=== PATIENT | female | born 1970 | race Caucasian/White ===

== ENCOUNTER 2018-01-21 17:37 | Emergency (ER) | payer OTHER ==
[2018-01-21] MEDS ORDERED: ENOXAPARIN SODIUM SQ STA (18:42)
--- NOTE | 2018-01-21 18:48 | ERPHSYRPT ---
- History of Present Illness Time Seen by Provider: 01/21/18 18:43 Source: patient Exam Limitations: no limitations Patient Subjective Stated Complaint: pt here for pain and swelling to lower legs , pt was sent here from drs office to rule out a dvt, she has factor 5 Triage Nursing Assessment: pt walked in, resp easy, skin w/d/p, has swelling to lower legs that pt states is normal. red area to right olwer leg size of quarter Physician History: The patient is a 47-year-old morbidly obese female who comes in from her pain management doctor who wants her to be evaluated for possible DVT and her right lower leg. The patient has known factor V Leiden deficiency and has known DVT that occurred 15 years ago. She has been on warfarin for many years and was transferred to [facility] and then transferred to [facility]. She went to see the pain management doctor for pain in her right leg that was due to the intermittent swelling of her right leg that she has had for 15 years. The pain specialist doctor would not fill her request for pain medicines until she has an ultrasound to look for DVT. The patient moved here from [place] in May 2017. She does not think that she has a blood clot at this time. She has had much worse leg swelling from time to time. She follows my recommendation to have an ultrasound done tomorrow on her right lower leg and then follow-up with her primary care doctor who can contact her pain management doctor. Her past medical history is significant for factor V Leiden, kidney stones, gout, arthritis, and depression. Timing/Duration: other (15 years) Severity: moderate Modifying Factors: Improves With: medication Associated Symptoms: denies symptoms Allergies/Adverse Reactions: aspirin Allergy (Verified 01/21/18 17:57) Penicillins Allergy (Verified 01/21/18 17:57) Home Medications: Allopurinol 300 mg [Zyloprim 300 mg] 300 mg PO DAILY 01/19/18 [History] Apixaban [Eliquis 5 mg Tablet] 5 mg PO BID 01/19/18 [History] Escitalopram Oxalate [Lexapro] 20 mg PO DAILY 01/19/18 [History] Furosemide 40 mg [Lasix 40 MG] 40 mg PO DAILY 01/19/18 [History] Meloxicam 15 mg [Meloxicam 15 MG] 15 mg PO DAILY 01/19/18 [History] Montelukast Sodium 10 mg [Singulair 10 MG] 10 mg PO DAILY 01/19/18 [History] Potassium Chloride [Klor-Con 10] 10 meq PO BID 01/19/18 [History] Tamsulosin HCl 0.4 mg [Flomax 0.4 MG] 0.4 mg PO DAILY 01/19/18 [History] Hx Influenza Vaccination/Date Given: No Hx Pneumococcal Vaccination/Date Given: No Immunizations Up to Date: Yes - Review of Systems Constitutional: No Fever, No Chills Eyes: No Symptoms Ears, Nose, & Throat: No Symptoms Respiratory: No Cough, No Dyspnea Cardiac: Edema (right lower leg), No Chest Pain, No Syncope Abdominal/Gastrointestinal: No Abdominal Pain, No Nausea, No Vomiting, No Diarrhea Genitourinary Symptoms: No Dysuria Musculoskeletal: No Back Pain, No Neck Pain Skin: No Rash Neurological: No Dizziness, No Focal Weakness, No Sensory Changes Psychological: No Symptoms Endocrine: No Symptoms Hematologic/Lymphatic: No Symptoms Immunological/Allergic: No Symptoms All Other Systems: Reviewed and Negative - Past Medical History Pertinent Past Medical History: Yes Respiratory History: Asthma, Sleep Apnea History: Other Psycho-Social History: Depression Other Medical History: gout ,kidney stones - Past Surgical History Past Surgical History: Yes Female Surgical History: Section, Tubal Ligation Other Surgical History: kidney stone removal - Social History Smoking Status: Never smoker Exposure to second hand smoke: No Drug Use: none Patient Lives Alone: No - Female History Hx Last Menstrual Period: 2009 Hx Now: No - Nursing Vital Signs Nursing Vital Signs: Initial Vital Signs Temperature 97.8 F 01/21/18 17:50 Pulse Rate 75 01/21/18 17:50 Respiratory Rate 16 01/21/18 17:50 Blood Pressure 137/70 01/21/18 17:50 O2 Sat by Pulse Oximetry 99 01/21/18 17:50 Pain Scale Pain Intensity 8 - Physical Exam General Appearance: no apparent distress, alert Eye Exam: PERRL/EOMI, eyes nml inspection Ears, Nose, Throat Exam: normal ENT inspection, TMs normal, pharynx normal, moist mucous membranes Neck Exam: normal inspection, non-tender, supple, full range of motion Respiratory Exam: normal breath sounds, lungs clear, No respiratory distress Cardiovascular Exam: regular rate/rhythm, normal heart sounds, normal peripheral pulses, edema (right lower leg) Gastrointestinal/Abdomen Exam: soft, normal bowel sounds, No tenderness, No mass Pelvic Exam: not done Rectal Exam: not done Back Exam: normal inspection, normal range of motion, No CVA tenderness, No vertebral tenderness Extremity Exam: normal inspection, normal range of motion, pelvis stable Neurologic Exam: alert, oriented x 3, cooperative, normal mood/affect, nml cerebellar function, nml station & gait, sensation nml, No motor deficits Skin Exam: normal color, warm, dry, No rash Lymphatic Exam: No adenopathy SpO2 Interpretation: normal SpO2: 99 Oxygen Delivery: Room Air - Progress Progress: unchanged Progress Note: 01/21/18 18:50 I discussed the plan for the patient as follows: The patient will be given Lovenox 120 units subcutaneous today in the ER. She will follow-up in radiology to have an ultrasound venous Doppler on her right lower leg at 4 PM tomorrow afternoon. She will follow-up promptly with her primary medical doctor. Discussed with : Josi Counseled pt/family regarding: diagnosis, need for follow-up - Departure Time of Disposition: 18:54 Departure Disposition: Home Clinical Impression: Right leg swelling Condition: Stable Critical Care Time: No Referrals: RAFY BELL [Primary Care Provider] - Additional Instructions: You have intermittent swelling of your right lower leg. You have known factor V Leiden diagnosis. Today you were given Lovenox 120 units subcutaneous in the ER. You are scheduled to have a right lower leg ultrasound to look for a DVT at [address] Prater has been contacted by me and is aware of what you are having done. You need to contact him shortly after having the ultrasound.
[2018-01-21] MEDS ORDERED: ENOXAPARIN SODIUM SQ ONE (18:56)
[2018-01-21 19:02] VITALS: BP 140/87; PULSE 72; O2SAT 97
== END 2018-01-21 19:13 | disposition home or self-care (01) ==
LOC: ED 17:37
DX: M79.89 Other specified soft tissue disorders (principal); M79.661 Pain in right lower leg; D68.51 Activated protein C resistance; E66.01 Morbid (severe) obesity due to excess calories; Z79.01 Long term (current) use of anticoagulants; M10.9 Gout, unspecified; M19.90 Unspecified osteoarthritis, unspecified site; Z79.899 Other long term (current) drug therapy; G47.30 Sleep apnea, unspecified; J45.909 Unspecified asthma, uncomplicated; F32.9 Major depressive disorder, single episode, unspecified
CPT/HCPCS: 96372; 99282; J1650

== ENCOUNTER 2018-02-07 12:50 | Emergency (ER) | payer OTHER ==
[2018-02-07 13:03] VITALS: BP 152/82
[2018-02-07] MEDS ORDERED: PROVENTIL 2.5 MG/3 ML NEB IH ONE ×2 (13:10→13:23)
[2018-02-07] MEDS ORDERED: TYLENOL 325 MG PO ONE (13:11)
[2018-02-07] MEDS ORDERED: TYLENOL 325 MG ONE (13:12)
--- NOTE | 2018-02-07 13:18 | ERPHSYRPT ---
- History of Present Illness Time Seen by Provider: 02/07/18 12:53 Source: patient, family Patient Subjective Stated Complaint: pt reports productive cough for 3 days- yellow green and white sputum-thick in nature-reports diarrhea since yesterday- tammie every hour-denies abd pain-denies vomiting Triage Nursing Assessment: pt pale warm and [id number] nonlabored-lungs diminished but clear-no retractions noted-abd soft and nontender to palp Physician History: CC: cough Hx: 47 y/o patient of Dr Prater with hx of blood clots. She has couple day hx of fever, myalgias, headache, cough, and watery diarrhea. She feels poorly. No vomiting. She has hx of asthma but out of inhaler as no symptoms for 3 years. Not short of breath. She takes blood thinners. No hx of DM. She feels off balance. Timing/Duration: day(s) (couple) Severity: moderate Allergies/Adverse Reactions: aspirin Allergy (Verified 02/07/18 13:02) Penicillins Allergy (Verified 02/07/18 13:02) Home Medications: Allopurinol 300 mg [Zyloprim 300 mg] 300 mg PO DAILY 01/19/18 [History] Apixaban [Eliquis 5 mg Tablet] 5 mg PO BID 01/19/18 [History] Escitalopram Oxalate [Lexapro] 20 mg PO DAILY 01/19/18 [History] Furosemide 40 mg [Lasix 40 MG] 40 mg PO DAILY 01/19/18 [History] Montelukast Sodium 10 mg [Singulair 10 MG] 10 mg PO DAILY 01/19/18 [History] Potassium Chloride [Klor-Con 10] 10 meq PO BID 01/19/18 [History] Tamsulosin HCl 0.4 mg [Flomax 0.4 MG] 0.4 mg PO DAILY 01/19/18 [History] Gabapentin [Neurontin] 100 mg PO HS 02/07/18 [History] Hx Tetanus, Diphtheria Vaccination/Date Given: No Hx Influenza Vaccination/Date Given: No Hx Pneumococcal Vaccination/Date Given: No Immunizations Up to Date: Yes - Review of Systems Constitutional: Fever, Chills, Fatigue, Malaise, Weakness Eyes: No Symptoms Ears, Nose, & Throat: Throat Pain Respiratory: Cough Cardiac: No Chest Pain, No Edema Abdominal/Gastrointestinal: Diarrhea (copious), No Abdominal Pain, No Vomiting Musculoskeletal: Myalgias, No Neck Pain Skin: No Rash Neurological: Headache, No Focal Weakness, No Parasthesia All Other Systems: Reviewed and Negative - Past Medical History Pertinent Past Medical History: Yes Respiratory History: Asthma, Sleep Apnea History: Other Psycho-Social History: Depression Other Medical History: gout ,kidney stones - Past Surgical History Past Surgical History: Yes Female Surgical History: Section, Tubal Ligation Other Surgical History: kidney stone removal - Social History Smoking Status: Never smoker Exposure to second hand smoke: No Drug Use: none Patient Lives Alone: No - Female History Hx Last Menstrual Period: menopause Hx Now: No - Nursing Vital Signs Nursing Vital Signs: Initial Vital Signs Pulse Rate 74 02/07/18 12:51 Respiratory Rate 16 02/07/18 12:51 Blood Pressure 113/74 02/07/18 12:51 O2 Sat by Pulse Oximetry 97 02/07/18 12:51 Pain Scale Pain Intensity 0 - Physical Exam General Appearance: alert Eye Exam: PERRL/EOMI Ears, Nose, Throat Exam: normal ENT inspection, moist mucous membranes Neck Exam: normal inspection, non-tender, supple, No meningismus Respiratory Exam: normal breath sounds, other (+ cough), No respiratory distress , No crackles/rales, No wheezing Cardiovascular Exam: regular rate/rhythm Gastrointestinal/Abdomen Exam: soft, No tenderness, No distention Back Exam: normal inspection, normal range of motion Extremity Exam: normal inspection, No calf tenderness, No pedal edema Neurologic Exam: alert, oriented x 3, cooperative, sensation nml, No motor deficits Skin Exam: warm, dry, No rash SpO2 Interpretation: normal SpO2: 96 Oxygen Delivery: Room Air - Course Nursing assessment & vital signs reviewed: Yes Ordered Tests: Active Orders 24 hr Category Date Time Status Clean Catch Urine Specimen STAT Care 02/07/18 13:11 Active Pulse Oximetry (ED) STAT Care 02/07/18 13:10 Active UA W/ MICROSCOPIC Stat Lab 02/07/18 13:20 Completed Respiratory Nebulizer STAT RT 02/07/18 13:10 Completed Medication Summary Discontinued Medications Generic Name Dose Route Start Last Admin Trade Name Freq PRN Reason Stop Dose Admin Acetaminophen 975 mg 02/07/18 13:11 02/07/18 13:13 Tylenol 325 Mg PO 02/07/18 13:12 975 mg STAT ONE Administration Acetaminophen Confirm 02/07/18 13:12 Tylenol 325 Mg Administered 02/07/18 13:13 Dose 975 mg .ROUTE .STK-MED ONE Albuterol Sulfate 2.5 mg 02/07/18 13:10 02/07/18 13:35 Proventil 2.5 Mg/3 Ml Neb IH 02/07/18 13:11 2.5 mg STAT ONE Administration Albuterol Sulfate Confirm 02/07/18 13:23 Proventil 2.5 Mg/3 Ml Neb Administered 02/07/18 13:24 Dose 2.5 mg IH .STK-MED ONE Lab/Rad Data: Laboratory Results 02/07/18 Range/Units 13:20 Ur Collection Type CCMS Urine Color YELLOW (YELLOW) Urine Appearance CLEAR (CLEAR) Urine pH 5.0 (5-6) Ur Specific [place] 1.015 (1.005-1.025) Urine Protein TRACE (Negative) Urine Ketones NEGATIVE (NEGATIVE) Urine Blood 5-10 (0-5) Shane/ul Urine Nitrite NEGATIVE (NEGATIVE) Urine Bilirubin NEGATIVE (NEGATIVE) Urine Urobilinogen NORMAL (0-1) mg/dL Ur Leukocyte Esterase NEGATIVE (NEGATIVE) Urine Microscopic RBC 2-5 (0-2) /HPF Ur Epithelial Cells FEW (FEW) /HPF Urine Culture Reflexed NO (NO) Urine Glucose NEGATIVE (NEGATIVE) mg/dL Specimen Received 1320 02/07/18 - Progress Progress Note: 02/07/18 13:15 She is nontoxic. Lungs clear. Symptoms suggest influenza B which is currently circulating. She is not interested in tamiflu. Offered cxr or labs but symptoms treatment really advised. APAP, alb neb given. 02/07/18 13:53 Lungs clear after neb per. RT. Will release with flu and symptoms instr. Counseled pt/family regarding: diagnosis, need for follow-up - Departure Time of Disposition: 13:53 Departure Disposition: Home Clinical Impression: Influenza-like syndrome Condition: Stable Critical Care Time: No Referrals: RAFY BELL [Primary Care Provider] - Instructions: Flu, Adult (DC), Cough, Adult (DC) Additional Instructions: UPPER RESPIRATORY INFECTIONS 1. The signs and symptoms of a cold may last up to 10 days. These illnesses are due to viruses which are not treatable with antibiotics. 2. The following suggestions can aid in recovery and to minimize symptoms: A. Increase fluid intake. B. Acetaminophen or Ibuprofen as directed. C. Avoid smoking environments as this will increase the risk of developing pneumonia. D. For children, may use a cool mist vaporizer in the child's room. 3. Contact your Family Physician if you note: A. Persisten fever >103 for more than 3 days B. Breathing difficulty C. Productive cough of yellow/green sputum D. Illness greater than 7 days E. Persistent vomiting F. Stiff neck Rx albuterol inhaler. Prescriptions: Albuterol Sulfate [Albuterol Sulfate Hfa] 2 puff IH Q4-6HPRN PRN #1 [email or web address] PRN Reason: cough or wheeze
[2018-02-07 13:24] LABS: Appearance CLEAR (CLEAR); Bilirubin NEGATIVE (NEGATIVE); Glucose NEGATIVE (NEGATIVE); Ketones NEGATIVE (NEGATIVE); Leukocyte Esterase NEGATIVE (NEGATIVE); Nitrite NEGATIVE (NEGATIVE); Protein,Urine Dip TRACE (Negative); Specific Gravity 1.015 (1.005-1.025); Urobilinogen NORMAL mg/dL (0-1)
[2018-02-07 13:35] LABS: Epithelial Cells FEW /HPF (FEW)
[2018-02-07 13:45] VITALS: PULSE 86
[2018-02-07 13:53] VITALS: O2SAT 96
== END 2018-02-07 14:04 | disposition home or self-care (01) ==
LOC: ED 12:50
DX: J44.1 Chronic obstructive pulmonary disease with (acute) exacerbation (principal)
CPT/HCPCS: 81000; 94150; 94640; 99283; 99284; A9270-GY

== ENCOUNTER 2018-11-24 11:52 | Day surgery (SDC) | payer OTHER ==
[2018-11-24] MEDS ORDERED: DIPRIVAN 200 MG/20 ML IV ONE (11:53)
[2018-11-24] MEDS ORDERED: Depo-Medrol 40 MG/ML IM ONE (11:53)
[2018-11-24] MEDS ORDERED: Marcaine 0.5% SDV 10 ML IJ ONE (11:53)
[2018-11-24] MEDS ORDERED: Lactated Ringers 1,000 ML IV ONE (15:01)
--- NOTE | 2018-11-24 16:23 | XRAY ---
Indication: Bilateral SI joint injection. Intraoperative fluoroscopy was provided for 20 seconds. 3 digital spot images submitted for interpretation demonstrates posterior needle tip projecting over the inferior right SI joint. Correlate with intraoperative findings/report.
--- NOTE | 2018-11-24 16:23 | XRAY ---
20 seconds fluoroscopy time in surgery for bilateral S-I joint injections.
== END 2018-11-24 16:30 | disposition home or self-care (01) ==
LOC: SDC-PAIN 11:52
PROVIDERS: ATTEND Psychiatry & Neurology Pain Medicine
DX: M46.1 Sacroiliitis, not elsewhere classified (principal); M53.3 Sacrococcygeal disorders, not elsewhere classified; Z79.899 Other long term (current) drug therapy
CPT/HCPCS: 27096; 72020; 77002; J1030; J2704; G0260

== ENCOUNTER 2019-03-16 11:37 | Day surgery (SDC) | payer OTHER ==
[2019-03-16] MEDS ORDERED: DIPRIVAN 200 MG/20 ML IV ONE (11:38)
[2019-03-16] MEDS ORDERED: Ketamine HCl 50 MG/ML IV ONE (11:38)
[2019-03-16] MEDS ORDERED: Marcaine 0.5% SDV 10 ML IJ ONE (11:38)
[2019-03-16] MEDS ORDERED: Depo-Medrol 40 MG/ML IM ONE (11:38)
[2019-03-16] MEDS ORDERED: Lactated Ringers 1,000 ML IV ONE (14:24)
--- NOTE | 2019-03-16 16:17 | XRAY ---
12 seconds fluoroscopy time in surgery for left SI joint injection.
--- NOTE | 2019-03-17 05:10 | XRAY ---
Indication: Left SI joint injection. Intraoperative fluoroscopy was provided for 12 seconds. 2 digital spot images submitted for interpretation demonstrate a posterior needle tip near the projection of the inferior aspect of the left SI joint. There may be some minimal contrast injected for needle tip placement. Correlate with an intraoperative findings/report.
== END 2019-03-16 13:30 | disposition home or self-care (01) ==
LOC: SDC-PAIN 11:37
PROVIDERS: ATTEND Psychiatry & Neurology Pain Medicine
DX: M46.1 Sacroiliitis, not elsewhere classified (principal); I10 Essential (primary) hypertension; E78.00 Pure hypercholesterolemia, unspecified; I51.9 Heart disease, unspecified; M10.9 Gout, unspecified; J44.9 Chronic obstructive pulmonary disease, unspecified; M06.9 Rheumatoid arthritis, unspecified
CPT/HCPCS: 27096; 72020; 77002; 84703; J1030; J2704; G0260

== ENCOUNTER 2019-06-01 11:29 | Day surgery (SDC) | payer OTHER ==
[2019-06-01] MEDS ORDERED: Depo-Medrol 40 MG/ML IM ONE (11:30)
[2019-06-01] MEDS ORDERED: Xylocaine-Mpf 2% 5 Ml Vial IJ ONE (11:30)
[2019-06-01] MEDS ORDERED: DIPRIVAN 200 MG/20 ML IV ONE (12:07)
[2019-06-01] MEDS ORDERED: Ketamine HCl 50 MG/ML ONE (12:07)
--- NOTE | 2019-06-01 12:51 | XRAY ---
14 seconds fluoroscopy time in surgery for left L4-S1 MBB.
--- NOTE | 2019-06-01 13:01 | XRAY ---
Indication: Left L4-S1 MBB. Intraoperative fluoroscopy was provided for 14 seconds. Single digital spot image submitted for interpretation demonstrates posterior needle tips projecting over the expected course of the left L4-S1 nerve roots. Correlate with intraoperative findings/report.
[2019-06-01] MEDS ORDERED: Lactated Ringers 1,000 ML IV ONE (13:46)
== END 2019-06-01 12:40 | disposition home or self-care (01) ==
LOC: SDC-PAIN 11:29
PROVIDERS: ATTEND Psychiatry & Neurology Pain Medicine
DX: M47.816 Spondylosis without myelopathy or radiculopathy, lumbar region (principal); J44.9 Chronic obstructive pulmonary disease, unspecified; I10 Essential (primary) hypertension; E78.00 Pure hypercholesterolemia, unspecified; M10.9 Gout, unspecified; I51.9 Heart disease, unspecified; F32.9 Major depressive disorder, single episode, unspecified
CPT/HCPCS: 64493; 64494; 72020; 77002; 84703; J1030; J2704

== ENCOUNTER 2019-07-20 12:43 | Day surgery (SDC) | payer OTHER ==
[2019-07-20] MEDS ORDERED: Depo-Medrol 40 MG/ML IM ONE (12:44)
[2019-07-20] MEDS ORDERED: Sodium Chloride 0.9(Preservative Free) 10 ML IJ ONE (12:44)
[2019-07-20] MEDS ORDERED: Xylocaine 1% Vial 30 ML PF IJ ONE (12:44)
[2019-07-20] MEDS ORDERED: Ketamine HCl 50 MG/ML ONE (13:53)
[2019-07-20] MEDS ORDERED: DIPRIVAN 200 MG/20 ML IV ONE (13:53)
[2019-07-20] MEDS ORDERED: Lactated Ringers 1,000 ML IV ONE (13:58)
--- NOTE | 2019-07-20 16:27 | XRAY ---
14 seconds fluoroscopy time in surgery for lumar LAINEY
--- NOTE | 2019-07-21 06:59 | XRAY ---
Indication: Lumbar LAINEY. Intraoperative fluoroscopy was provided for 14 seconds. PA and lateral digital spot films reveal the distal spinal needle tip to be in projected at the posterior margin of the L4-L5 spinal canal in the midline. Correlate with intraoperative findings/report.
== END 2019-07-20 15:23 | disposition home or self-care (01) ==
LOC: SDC-PAIN 12:43
PROVIDERS: ATTEND Psychiatry & Neurology Pain Medicine
DX: M54.16 Radiculopathy, lumbar region (principal); I10 Essential (primary) hypertension; M06.9 Rheumatoid arthritis, unspecified; J44.9 Chronic obstructive pulmonary disease, unspecified; M10.9 Gout, unspecified; E78.00 Pure hypercholesterolemia, unspecified; Z79.899 Other long term (current) drug therapy
CPT/HCPCS: 62323; 72100; 77003; 84703; J1030; J2001; J2704; Q9966

== ENCOUNTER 2020-03-21 10:42 | Day surgery (SDC) | payer OTHER ==
[2020-03-21] MEDS ORDERED: Marcaine 0.5% SDV 10 ML IM ONE (10:43)
[2020-03-21] MEDS ORDERED: Depo-Medrol 40 MG/ML IM ONE (10:43)
[2020-03-21] MEDS ORDERED: DIPRIVAN 200 MG/20 ML IV ONE (12:03)
[2020-03-21] MEDS ORDERED: Ketamine HCl 50 MG/ML ONE (12:03)
--- NOTE | 2020-03-21 13:06 | XRAY ---
Indication: Left SI joint injection. Intraoperative fluoroscopy was provided for 11 seconds. 2 digital spot images submitted for interpretation demonstrate posterior needle tip projecting over the inferior left SI joint. Correlate with intraoperative findings/report.
--- NOTE | 2020-03-21 13:23 | XRAY ---
11 seconds fluoroscopy time in surgery for left SI joint injection.
[2020-03-21] MEDS ORDERED: Lactated Ringers 1,000 ML IV ONE (14:46)
== END 2020-03-21 12:27 | disposition home or self-care (01) ==
LOC: SDC-PAIN 10:42
PROVIDERS: ATTEND Psychiatry & Neurology Pain Medicine
DX: M46.1 Sacroiliitis, not elsewhere classified (principal); M53.3 Sacrococcygeal disorders, not elsewhere classified; I10 Essential (primary) hypertension; M06.9 Rheumatoid arthritis, unspecified; E78.00 Pure hypercholesterolemia, unspecified; J44.9 Chronic obstructive pulmonary disease, unspecified; Z79.899 Other long term (current) drug therapy
CPT/HCPCS: 64625; 72020; 77002; 84703; J1030; J2704

== ENCOUNTER 2020-04-18 11:26 | Day surgery (SDC) | payer OTHER ==
[2020-04-18] MEDS ORDERED: Marcaine 0.5% SDV 10 ML IM ONE (11:27)
[2020-04-18] MEDS ORDERED: Depo-Medrol 40 MG/ML IM ONE (11:27)
[2020-04-18] MEDS ORDERED: Ketamine HCl 50 MG/ML ONE (12:27)
[2020-04-18] MEDS ORDERED: DIPRIVAN 200 MG/20 ML IV ONE (12:27)
--- NOTE | 2020-04-18 14:19 | XRAY ---
Indication: Bilateral L4-S1 MBB. Intraoperative fluoroscopy was provided for 8 seconds. Single digital spot image submitted for interpretation demonstrates posterior needle tips projecting over the expected course of the left and right L4-S1 nerve roots. Correlate with intraoperative findings/report.
--- NOTE | 2020-04-18 14:20 | XRAY ---
8 seconds fluoroscopy time in surgery for bilateral L4-S1 MBB.
[2020-04-18] MEDS ORDERED: Lactated Ringers 1,000 ML IV ONE (14:54)
== END 2020-04-18 12:55 | disposition home or self-care (01) ==
LOC: SDC-PAIN 11:26
PROVIDERS: ATTEND Psychiatry & Neurology Pain Medicine
DX: M47.816 Spondylosis without myelopathy or radiculopathy, lumbar region (principal); M06.9 Rheumatoid arthritis, unspecified; J44.9 Chronic obstructive pulmonary disease, unspecified; I10 Essential (primary) hypertension; E78.00 Pure hypercholesterolemia, unspecified; Z79.899 Other long term (current) drug therapy; Z79.01 Long term (current) use of anticoagulants
CPT/HCPCS: 64493; 64494; 72020; 77002; 84703; J1030; J2704

== ENCOUNTER 2020-05-09 10:56 | Day surgery (SDC) | payer OTHER ==
[2020-05-09] MEDS ORDERED: Xylocaine 1% Vial 30 ML PF IJ ONE (10:57)
[2020-05-09] MEDS ORDERED: Depo-Medrol 40 MG/ML IM ONE (10:57)
[2020-05-09] MEDS ORDERED: Marcaine 0.5% SDV 10 ML IJ ONE (10:57)
[2020-05-09] MEDS ORDERED: Ketamine HCl 50 MG/ML ONE (11:42)
[2020-05-09] MEDS ORDERED: DIPRIVAN 200 MG/20 ML IV ONE (11:42)
--- NOTE | 2020-05-09 13:53 | XRAY ---
19 seconds fluoroscopy time in surgery for right L3-S1 RFA.
--- NOTE | 2020-05-09 14:03 | XRAY ---
Indication: Right L4-S1 RFA. Intraoperative fluoroscopy was provided for 19 seconds. 3 digital spot images submitted for interpretation demonstrates posterior needle tips projecting over the expected course of the right L4-S1 nerve roots. Correlate with intraoperative findings/report.
[2020-05-09] MEDS ORDERED: Lactated Ringers 1,000 ML IV ONE (15:50)
== END 2020-05-09 12:16 | disposition home or self-care (01) ==
LOC: SDC-PAIN 10:56
PROVIDERS: ATTEND Psychiatry & Neurology Pain Medicine
DX: M47.816 Spondylosis without myelopathy or radiculopathy, lumbar region (principal); I10 Essential (primary) hypertension; E11.9 Type 2 diabetes mellitus without complications; M06.9 Rheumatoid arthritis, unspecified; J44.9 Chronic obstructive pulmonary disease, unspecified; Z79.899 Other long term (current) drug therapy
CPT/HCPCS: 64635; 64636; 72100; 77002; 82962; 84703; J1030; J2001; J2704

== ENCOUNTER 2020-06-13 07:53 | Day surgery (SDC) | payer OTHER ==
[2020-06-13] MEDS ORDERED: BUPIVACAINE 0.5% VIAL IJ ONE (07:54)
[2020-06-13] MEDS ORDERED: Xylocaine 1% Vial 30 ML PF IJ ONE (07:54)
[2020-06-13] MEDS ORDERED: Depo-Medrol 40 MG/ML IM ONE (07:54)
[2020-06-13] MEDS ORDERED: DIPRIVAN 200 MG/20 ML IV ONE ×2 (08:05→09:17)
[2020-06-13] MEDS ORDERED: Ketamine HCl 50 MG/ML ONE (08:08)
--- NOTE | 2020-06-13 11:05 | XRAY ---
Indication: Left L4-S1 RFA. Intraoperative fluoroscopy was provided for 28 seconds. 3 digital spot images submitted for interpretation demonstrates posterior needle tips projecting over the expected course of the left L4-S1 nerve roots. Correlate with intraoperative findings/report.
--- NOTE | 2020-06-13 12:27 | XRAY ---
28 seconds fluoroscopy time in surgery for left L4-S1 RFA.
[2020-06-13] MEDS ORDERED: Lactated Ringers 1,000 ML IV ONE (14:24)
== END 2020-06-13 09:45 | disposition home or self-care (01) ==
LOC: SDC-PAIN 07:53
PROVIDERS: ATTEND Psychiatry & Neurology Pain Medicine
DX: M47.816 Spondylosis without myelopathy or radiculopathy, lumbar region (principal); J44.9 Chronic obstructive pulmonary disease, unspecified; I10 Essential (primary) hypertension; M06.9 Rheumatoid arthritis, unspecified; I51.9 Heart disease, unspecified; E78.00 Pure hypercholesterolemia, unspecified; Z79.899 Other long term (current) drug therapy
CPT/HCPCS: 64635; 64636; 72100; 77002; 82962; 84703; J1030; J2001; J2704

== ENCOUNTER 2021-12-04 06:51 | Day surgery (SDC) | payer BC ==
[2021-12-04] MEDS ORDERED: BUPIVACAINE 0.5% VIAL IJ ONE (06:52)
[2021-12-04] MEDS ORDERED: Depo-Medrol 40 MG/ML IM ONE (06:52)
[2021-12-04] MEDS ORDERED: DIPRIVAN 200 MG/20 ML IV ONE (08:48)
[2021-12-04] MEDS ORDERED: Lactated Ringers 1,000 ML IV ONE (09:28)
--- NOTE | 2021-12-04 09:46 | XRAY ---
36 seconds fluoroscopy time in surgery for injections of both SI joints.
--- NOTE | 2021-12-04 09:47 | XRAY ---
Indication: Bilateral SI joint injection. Intraoperative fluoroscopy provided for 36 seconds. 4 digital spot image submitted for interpretation demonstrates posterior needle tip projecting over the inferior left and right SI joint. Correlate with intraoperative findings/report.
== END 2021-12-04 09:20 | disposition home or self-care (01) ==
LOC: SDC-PAIN 06:51
PROVIDERS: ATTEND Psychiatry & Neurology Pain Medicine
DX: M46.1 Sacroiliitis, not elsewhere classified (principal); E11.9 Type 2 diabetes mellitus without complications; I10 Essential (primary) hypertension; Z79.899 Other long term (current) drug therapy; Z79.01 Long term (current) use of anticoagulants
CPT/HCPCS: 27096; 72202; 77002; 82947; 84703; J1030; J2704; G0260

== ENCOUNTER 2022-07-02 06:48 | Day surgery (SDC) | payer BC ==
[2022-07-02] MEDS ORDERED: Depo-Medrol 40 MG/ML IM ONE (06:49)
[2022-07-02] MEDS ORDERED: BUPIVACAINE 0.5% VIAL IJ ONE (06:49)
[2022-07-02] MEDS ORDERED: Zofran 4 MG/2 ML VIAL ONE (08:00)
[2022-07-02] MEDS ORDERED: DIPRIVAN 200 MG/20 ML IV ONE (08:00)
[2022-07-02] MEDS ORDERED: Decadron 4 MG INJ ONE (08:00)
--- NOTE | 2022-07-02 10:31 | XRAY ---
Indication: Bilateral SI joint injection. Intraoperative fluoroscopy provided for 22 seconds. 4 digital spot images submitted for interpretation demonstrates posterior needle tip projecting over the left and right SI joint. Correlate with intraoperative findings/report.
[2022-07-02] MEDS ORDERED: Lactated Ringers 1,000 ML IV ONE (10:33)
--- NOTE | 2022-07-02 10:52 | XRAY ---
22 seconds of fluoroscopy was used in surgery for bilateral SI joint injections.
== END 2022-07-02 08:30 | disposition home or self-care (01) ==
LOC: SDC-PAIN 06:48
PROVIDERS: ATTEND Psychiatry & Neurology Pain Medicine
DX: M46.1 Sacroiliitis, not elsewhere classified (principal); E11.9 Type 2 diabetes mellitus without complications; Z79.899 Other long term (current) drug therapy
CPT/HCPCS: 27096; 72202; 77002; 81025; 82947; J1030; J1100; J2405; J2704; G0260

== ENCOUNTER 2022-08-12 19:24 | Emergency (ER) | payer BC, OTHER ==
--- NOTE | 2022-08-12 19:27 | ERPHSYRPT ---
- History of Present Illness Time Seen by Provider: 08/12/22 19:27 Source: patient Exam Limitations: no limitations Physician History: This is a right-handed 52-year-old white female patient who was working at [employer] when she slipped on the floor and landed on her right elbow. Patient has a pain clinic doctor and is on daily [place]. She does not need any [place] medication at home per her report. She did take five 200 mg tablets prior to arrival. She did not hit her head. She has no complaints of head or neck pain. She has right elbow pain Occurred: just prior to arrival Method of Injury: fell Quality: constant, aching Severity of Pain-Max: mild (To moderate) Severity of Pain-Current: mild (To moderat) Extremities Pain Location: elbow: right Modifying Factors: Improves With: movement (Since) Allergies/Adverse Reactions: aspirin Allergy (Verified 08/12/22 19:29) Penicillins Allergy (Verified 08/12/22 19:29) Home Medications: Allopurinol 300 mg [Zyloprim 300 mg] 300 mg PO DAILY 01/19/18 [History] Apixaban [Eliquis 5 mg Tablet] 5 mg PO BID 01/19/18 [History] Escitalopram Oxalate [Lexapro] 20 mg PO DAILY 01/19/18 [History] Furosemide 40 mg [Lasix 40 MG] 40 mg PO DAILY 01/19/18 [History] Montelukast Sodium 10 mg [Singulair 10 MG] 10 mg PO DAILY 01/19/18 [History] Potassium Chloride [Klor-Con 10] 10 meq PO BID 01/19/18 [History] Tamsulosin HCl 0.4 mg [Flomax 0.4 MG] 0.4 mg PO DAILY 01/19/18 [History] Gabapentin [Neurontin] 100 mg PO HS 02/07/18 [History] Hx Tetanus, Diphtheria Vaccination/Date Given: No Hx Influenza Vaccination/Date Given: No Hx Pneumococcal Vaccination/Date Given: No Travel Risk - International Travel Have you traveled outside of the country in past 3 weeks: No - Coronavirus Screening Are you exhibiting any of the following symptoms?: No Close contact with a COVID-19 positive Pt in past 14-21 Days: No - Review of Systems Constitutional: No Symptoms Eyes: No Symptoms Ears, Nose, & Throat: No Symptoms Respiratory: No Symptoms Cardiac: No Symptoms Abdominal/Gastrointestinal: No Symptoms Genitourinary Symptoms: No Symptoms Musculoskeletal: Injury (Right elbow) Skin: No Symptoms Neurological: No Symptoms Psychological: No Symptoms Endocrine: No Symptoms Hematologic/Lymphatic: No Symptoms Immunological/Allergic: No Symptoms All Other Systems: Reviewed and Negative - Past Medical History Pertinent Past Medical History: Yes Neurological History: Migraines Cardiac History: Hypertension Respiratory History: Asthma Endocrine Medical History: Diabetes Type II, Other Musculoskeletal History: Degenerative Disk Disease, Other History: Other Psycho-Social History: Depression Other Medical History: PMHX: 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 STATES CHRONIC CONSTANT PAIN IN NECK/BACK AND SI JOINT - SEES PAIN MANAGEMENT, FACTOR 5, GOUT - Past Surgical History Past Surgical History: Yes Female Surgical History: Section, Tubal Ligation Other Surgical History: kidney stone removal - Social History Smoking Status: Never smoker Exposure to second hand smoke: No Drug Use: none Patient Lives Alone: No - Nursing Vital Signs Nursing Vital Signs: Initial Vital Signs Temperature 97.2 F 08/12/22 19:29 Pulse Rate 75 08/12/22 19:29 Respiratory Rate 18 08/12/22 19:29 Blood Pressure 234/99 08/12/22 19:29 O2 Sat by Pulse Oximetry 97 08/12/22 19:29 Pain Scale Pain Intensity 10 - Physical Exam General Appearance: no apparent distress, alert, anxiety, obese Eyes, Ears, Nose, Throat Exam: normal ENT inspection, moist mucous membranes Neck Exam: normal inspection, non-tender, supple, full range of motion Cardiovascular/Respiratory Exam: chest non-tender, no respiratory distress Abdominal Exam: non-tender Back Exam: normal inspection, normal range of motion, No CVA tenderness, No vertebral tenderness Shoulder Exam: normal inspection, non-tender, no evidence of injury, normal ROM Elbow/Forearm Exam: bone tenderness (Right elbow), ecchymosis (Right elbow), limited ROM (Right elbow), soft tissue tenderness (Right elbow), swelling (Right elbow) Wrist Exam: normal inspection, non-tender, no evidence of injury, normal ROM Hand Exam: normal inspection, non-tender, no evidence of injury, normal ROM Neuro/Tendon Exam: normal sensation, normal tendon functions, responds to pain, no evidence tendon injury Mental Status Exam: alert, oriented x 3, cooperative Skin Exam: ecchymosis (Right elbow region) SpO2 Interpretation: normal O2 Delivery: Room Air - Course Nursing assessment & vital signs reviewed: Yes Ordered Tests: Active Orders 24 hr Category Date Time Status Sling Application STAT Care 08/12/22 19:55 Active ELBOW (MINIMUM 3 VIEWS) Stat Exams 08/12/22 20:01 Taken Medication Summary Discontinued Medications Generic Name Dose Route Start Last Admin Trade Name [place] PRN Reason Stop Dose Admin Oxycodone/Acetaminophen 1 tab 08/12/22 19:55 08/12/22 20:00 Oxycodone / Apap 10/325 Mg 1 Tablet PO 08/12/22 19:56 1 tab STAT STA Administration Oxycodone/Acetaminophen Confirm 08/12/22 19:59 Oxycodone / Apap 10/325 Mg 1 Tablet Administered 08/12/22 20:00 Dose 1 tab .ROUTE .STK-MED ONE - Progress Progress: improved, pain not gone completely Progress Note: 08/12/22 20:13 X-ray right elbow shows a nondisplaced right radial head fracture. Counseled pt/family regarding: diagnosis, need for follow-up - Departure Departure Disposition: Home Clinical Impression: Fracture of radial head, right, closed Condition: Stable Critical Care Time: No Referrals: RAFY BELL NP [Primary Care Provider] - Follow up/PCP as directed Additional Instructions: Ice pack to area 3 times a day. Follow-up tomorrow at [facility] orthopedic clinic tomorrow, 08/13/2022, at 8 AM to 10 AM for further evaluation management. You do not need an appointment. It is a walk-in clinic. Keep your right arm in the sling for comfort. Take your prescribed [place] at home as it is prescribed to take. Forms: Work/School Release Form
[2022-08-12] MEDS ORDERED: OXYCODONE-ACETAMINOPHEN 10-325 PO STA (19:55)
[2022-08-12] MEDS ORDERED: OXYCODONE-ACETAMINOPHEN 10-325 ONE (19:59)
[2022-08-12 21:09] VITALS: BP 189/98; PULSE 68; O2SAT 96
--- NOTE | 2022-08-13 09:02 | XRAY ---
Indication: Pain following a fall. Comparison: None 3 view right elbow demonstrates nondisplaced subcapital radial head cortical fracture without large effusion. No other bony, articular, or soft tissue abnormalities.
== END 2022-08-12 21:10 | disposition home or self-care (01) ==
LOC: ED 19:24
DX: S52.121A Displaced fracture of head of right radius, initial encounter for closed fracture (principal); W01.0XXA Fall on same level from slipping, tripping and stumbling without subsequent striking against object, initial encounter; Y92.511 Restaurant or cafe as the place of occurrence of the external cause; Y99.0 Civilian activity done for income or pay; Z79.899 Other long term (current) drug therapy; Z79.01 Long term (current) use of anticoagulants
CPT/HCPCS: 73080; 99282; A9270-GY

== ENCOUNTER 2023-08-26 06:49 | Day surgery (SDC) | payer BC ==
[2023-08-26] MEDS ORDERED: Depo-Medrol 40 MG/ML IM ONE (06:50)
[2023-08-26] MEDS ORDERED: LIDOCAINE HCL 1% 50 MG/5 ML VL PF IJ ONE (06:50)
[2023-08-26] MEDS ORDERED: BUPIVACAINE 0.5% VIAL IJ ONE (06:50)
[2023-08-26] MEDS ORDERED: APRESOLINE 20 MG/ML INJ ONE (07:53)
[2023-08-26] MEDS ORDERED: Versed 2 MG/2 ML Injection ONE ×2 (08:36→09:32)
[2023-08-26] MEDS ORDERED: DIPRIVAN 200 MG/20 ML IV ONE ×2 (09:31→09:41)
--- NOTE | 2023-08-26 11:26 | XRAY ---
Indication: Left L4-S1 RFA. Intraoperative fluoroscopy provided for 1 minute 6 seconds. 4 digital spot image submitted for interpretation demonstrates posterior needle tips projecting over the expected left L4-S1 nerve roots. Correlate with intraoperative findings/report.
--- NOTE | 2023-08-26 12:12 | XRAY ---
One minute and 6 seconds of fluoroscopy was used in surgery for a left L4-S1 RFA.
== END 2023-08-26 10:10 | disposition home or self-care (01) ==
LOC: SDC-PAIN 06:49
PROVIDERS: ATTEND Psychiatry & Neurology Pain Medicine
DX: M47.816 Spondylosis without myelopathy or radiculopathy, lumbar region (principal); Z79.899 Other long term (current) drug therapy
CPT/HCPCS: 64635; 64636; 72100; 77002; 82947; J0360; J1030; J2001; J2250; J2704

== ENCOUNTER 2023-09-09 06:58 | Day surgery (SDC) | payer BC ==
[2023-09-09] MEDS ORDERED: DIPRIVAN 200 MG/20 ML IV ONE (08:01)
[2023-09-09] MEDS ORDERED: Versed 2 MG/2 ML Injection ONE (08:04)
[2023-09-09] MEDS ORDERED: Lactated Ringers 1,000 ML IV ONE (10:54)
--- NOTE | 2023-09-09 11:22 | XRAY ---
Indication: Right L4-S1 RFA. Intraoperative fluoroscopy provided for 30 seconds. 4 digital spot images submitted for interpretation demonstrates posterior needle tips projecting over the expected right L4-S1 nerve roots. Correlate with intraoperative findings/report.
--- NOTE | 2023-09-09 11:27 | XRAY ---
30 seconds of fluoroscopy was used in surgery for a right L4-S1 RFA.
[2023-09-09] MEDS ORDERED: XYLOCAINE-MPF 1% 5ML SDV IJ ONE (16:59)
[2023-09-09] MEDS ORDERED: BUPIVACAINE 0.5% VIAL IJ ONE (16:59)
[2023-09-09] MEDS ORDERED: Depo-Medrol 40 MG/ML IM ONE (16:59)
== END 2023-09-09 08:33 | disposition home or self-care (01) ==
LOC: SDC-PAIN 06:58
PROVIDERS: ATTEND Psychiatry & Neurology Pain Medicine
DX: M47.816 Spondylosis without myelopathy or radiculopathy, lumbar region (principal); Z79.899 Other long term (current) drug therapy
CPT/HCPCS: 64635; 64636; 72100; 77002; 82947; J1030; J2250; J2704

== ENCOUNTER 2024-10-09 18:36 | Emergency (ER) | payer BC ==
[2024-10-09 20:19] VITALS: PULSE 69; RESP 20; TEMP 97.7; O2SAT 99
[2024-10-09 20:31] LABS: Absolute Neutrophil Ct (ANC) 3.03 x10^3/uL (1.56-6.13); BASOPHIL % 0.8 % (0.1-1.2); Basophil (Absolute #) 0.05 x10^3/uL (0.01-0.08); Eosinophil % 1.4 % (0.7-5.8); Eosinophil (Absolute #) 0.08 x10^3/uL (0.04-0.36); Hematocrit 44.6 % (34.1-44.9); Hemoglobin 14.4 g/dL (11.2-15.7); IMMATURE GRAN # 0.02 x10^3u/L (0.001-0.031); IMMATURE GRAN % 0.3 % (0.001-0.429); Lymphocyte (Absolute #) 1.89 x10^3/uL (1.18-3.74); Mean Cell Volume 93.7 fL (79.4-94.8); Mean Corpuscular Hemoglobin 30.3 pg (25.6-32.2); Mean Corpuscular Hgb Concent. 32.3 g/dL (32.2-35.5); Mean Platelet Volume 10.5 fL (9.4-12.3); Monocyte (Absolute #) 0.84 x10^3/uL (0.24-0.86); Monocytes % 14.2 % (4.7-12.5); Neutrophil % 51.3 % (34.0-71.1); Platelet Count 220 x10^3/uL (182-369); Red Blood Count 4.76 x10^6/uL (3.93-5.22); Red Cell Distribution Width 11.9 % (11.7-14.4); White Blood Count 5.9 x10^3/uL (3.98-10.04)
--- NOTE | 2024-10-09 20:44 | ERPHSYRPT ---
- History of Present Illness Source: patient Exam Limitations: no limitations Patient Subjective Stated Complaint: Coughing, Bilateral ear pain, sore throat, SOB, chest pain from coughing, glands swollen, diarrhea few days ago, CONTEH, bodyaches. Been going on few weeks and worse today. Triage Nursing Assessment: Patient presents with coughing, bilateral ear pain, sore throat, SOB, chest pain from coughing, glands swollen, diarrhea few days ago, headache, bodyaches. Been going on few weeks and worse today. Took some DayQuil at home today around 1330 today with no help or relief of cough. Physician History: Patient has cough. Has been productive. Has been going on for about 2 weeks. It started 2 weeks ago and then it resolved and then it came back. She does have asthma and says she feels like she is wheezing a bit. She has green sputu m. She is not dyspneic at rest but does get a little bit more dyspneic with exertion than usual. She does not have any chest pain that would seem cardiovascular in origin. She has a history of asthma and has nebulizers but has not taken them. Allergies/Adverse Reactions: aspirin Allergy (Verified 10/09/24 20:19) Penicillins Allergy (Verified 10/09/24 20:19) Home Medications: Allopurinol 300 mg [Zyloprim 300 mg] 300 mg PO DAILY 01/19/18 [History] Apixaban [Eliquis 5 mg Tablet] 5 mg PO BID 01/19/18 [History] Furosemide 40 mg [Lasix 40 MG] 40 mg PO DAILY 01/19/18 [History] Montelukast Sodium 10 mg [Singulair 10 MG] 10 mg PO DAILY 01/19/18 [History] Potassium Chloride [Klor-Con 10] 10 meq PO BID 01/19/18 [History] Gabapentin [Neurontin] 800 mg PO BID 02/07/18 [History] Hx Tetanus, Diphtheria Vaccination/Date Given: No Hx Influenza Vaccination/Date Given: No Hx Pneumococcal Vaccination/Date Given: No Immunizations Up to Date: No Travel Risk - International Travel Have you traveled outside of the country in past 3 weeks: No - Emerging Infectious Disease Are you exhibiting symptoms associated with any current EIDs: Yes Symptoms: Cough: New Onset, Diarrhea, Headaches/Body Aches/, Shortness of Breath - Review of Systems Constitutional: Chills, Fatigue, Malaise Eyes: No Symptoms Ears, Nose, & Throat: Nose Congestion, Nose Discharge, Sinus Drainage, Throat Pain, Hoarse Respiratory: Cough Cardiac: No Symptoms Abdominal/Gastrointestinal: No Symptoms Skin: No Symptoms Psychological: No Symptoms - Past Medical History Pertinent Past Medical History: Yes Neurological History: Migraines ENT History: Other Cardiac History: Hypertension Respiratory History: Asthma Endocrine Medical History: Diabetes Type II, Other Musculoskeletal History: Degenerative Disk Disease, Other GI Medical History: No Pertinent History History: Other Psycho-Social History: Depression Female Reproductive Disorders: No Pertinent History Other Medical History: PMHX: 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 STATES CHRONIC CONSTANT PAIN IN NECK/BACK AND SI JOINT - SEES PAIN MANAGEMENT, FACTOR 5, GOUT - Past Surgical History Past Surgical History: Yes Female Surgical History: Section, Tubal Ligation Other Surgical History: kidney stone removal - Social History Smoking Status: Never smoker Exposure to second hand smoke: No Drug Use: none Patient Lives Alone: No - Social Determinants of Health Will the patient participate in the screening: Yes Do you worry about a steady place to live?: No Do you have any problems with any of the following?: No known problems In the past 12 months,have you had to go without utilities?: No Transportation Issues: No Has anyone in your support network made you feel unsafe?: No Have you or anyone in your house had to go without enough: No - Nursing Vital Signs Nursing Vital Signs: Initial Vital Signs Temperature 97.7 F 10/09/24 20:05 Pulse Rate 69 10/09/24 20:05 Respiratory Rate 20 10/09/24 20:05 Blood Pressure 207/91 10/09/24 20:05 O2 Sat by Pulse Oximetry 99 10/09/24 20:05 Pain Scale Pain Intensity 0 - Physical Exam General Appearance: no apparent distress Eye Exam: PERRL/EOMI Ears, Nose, Throat Exam: normal ENT inspection, TMs normal, pharynx normal Neck Exam: normal inspection Respiratory Exam: airway intact, diminished breath sounds, prolonged expirations, wheezing (Expiratory), No chest tenderness, No respiratory distress, No crackles/rales Cardiovascular Exam: regular rate/rhythm, normal heart sounds Extremity Exam: normal inspection Neurologic Exam: alert, oriented x 3, cooperative, normal mood/affect, nml cerebellar function Skin Exam: normal color SpO2: 99 - Course Nursing assessment & vital signs reviewed: Yes Ordered Tests: Active Orders 24 hr Category Date Time Status CHEST 1 VIEW (PORTABLE) Stat Exams 10/09/24 20:11 Taken CBC W DIFF Stat Lab 10/09/24 20:25 Completed CMP Stat Lab 10/09/24 20:25 Completed Patient's swabs are negative for COVID flu and RSV. Her x-ray was done as interpreted by me independently. There is no acute findings. At this time I think the patient has a Atypical pneumonia. Other things in the differential would be pneumonia, RSV, flu,COVID. The patient has a nebulizer at home. I am going to have her use that every 2 hours or so as needed. I am also going to start her on prednisone and Zithromax and Tessalon for cough. Lab/Rad Data: Laboratory Result Diagrams 10/09/24 20:25 10/09/24 20:25 Laboratory Results 10/09/24 10/09/24 10/09/24 Range/Units 20:25 20:25 20:25 WBC 5.9 (3.98-10.04) x10^3/uL RBC 4.76 (3.93-5.22) x10^6/uL Hgb 14.4 (11.2-15.7) g/dL Hct 44.6 (34.1-44.9) % MCV 93.7 (79.4-94.8) fL MCH 30.3 (25.6-32.2) pg MCHC 32.3 (32.2-35.5) g/dL RDW 11.9 (11.7-14.4) % Plt Count 220 (182-369) x10^3/uL MPV 10.5 (9.4-12.3) fL Gran % 51.3 (34.0-71.1) % Immature Gran % (Auto) 0.3 (0.001-0.429) % Nucleat RBC Rel Count 0.0 (0.00-0.2) % Eos # (Auto) 0.08 (0.04-0.36) x10^3/uL Immature Gran # (Auto) 0.02 (0.001-0.031) x10^3u/L Absolute Lymphs (auto) 1.89 (1.18-3.74) x10^3/uL Absolute Monos (auto) 0.84 (0.24-0.86) x10^3/uL Absolute Nucleated RBC 0.00 (0.00-0.012) x10^3u/L Lymphocytes % 32.0 (19.3-51.7) % Monocytes % 14.2 H (4.7-12.5) % Eosinophils % 1.4 (0.7-5.8) % Basophils % 0.8 (0.1-1.2) % Absolute Granulocytes 3.03 (1.56-6.13) x10^3/uL Basophils # 0.05 (0.01-0.08) x10^3/uL Sodium 139 (135-145) mmol/L Potassium 3.9 (3.5-5.1) mmol/L Chloride 109 H (98-107) mmol/L Carbon Dioxide 23 (22-30) mmol/L Anion Gap 10.5 (5-15) MEQ/L BUN 16 (7-17) mg/dL Creatinine 0.91 (0.52-1.04) mg/dL Estimated GFR 74.0 ML/MIN Glucose 107 H (74-106) mg/dL Calcium 9.1 (8.4-10.2) mg/dL Total Bilirubin 0.40 (0.2-1.3) mg/dL AST 39 H (14-36) U/L ALT 34 (0-35) U/L Alkaline Phosphatase 95 (38-126) U/L Serum Total Protein 7.5 (6.3-8.2) g/dL Albumin 4.4 (3.5-5.0) g/dL Influenza Type A Ag NEGATIVE (NEGATIVE) Influenza Type B Ag NEGATIVE (NEGATIVE) RSV (PCR) NEGATIVE (NEGATIVE) SARS-CoV-2 (PCR) NEGATIVE (NEGATIVE) - Progress Progress: improved Air Movement: good Blood Culture(s) Obtained: No Antibiotics given: No Medical Desision Making - Social Determinants of Health Pt's dx & treatment plan are significantly limited by SDOH: limited education - Diagnostic Testing Diagnostic test were ordered, analyzed, and reviewed by me: Yes Radiological Interpretation: Interpreted by me (No acute findings) - Risk of complications Minimal Risk: Minimal risk of morbidity - Departure Departure Disposition: Home Clinical Impression: Atypical pneumonia Condition: Stable Critical Care Time: No Referrals: RAFY BELL NP [Primary Care Provider] - Follow up/PCP as directed Instructions: Bronchitis, Adult ED Prescriptions: Benzonatate 200 mg PO Q6-8HPRN PRN #30 cap PRN Reason: Cough Prednisone 20 mg [Deltasone 20 mg] 20 mg PO TID #12 tablet Azithromycin 250 mg [Zithromax 250 MG TABLET] 250 mg PO QAM #4 tablet
[2024-10-09 20:45] LABS: ALBUMIN 4.4 g/dL (3.5-5.0); ANION GAP 10.5 MEQ/L (5-15); BILIRUBIN,TOTAL 0.4 mg/dL (0.2-1.3); Calcium 9.1 mg/dL (8.4-10.2); Creatinine 1 0.91 mg/dL (0.52-1.04); Potassium 3.9 mmol/L (3.5-5.1); Total Protein 7.5 g/dL (6.3-8.2)
[2024-10-09 21:06] LABS: INFLUENZA A NEGATIVE (NEGATIVE); INFLUENZA B NEGATIVE (NEGATIVE); RESPIRATORY SYNCTIAL VIRUS NEGATIVE (NEGATIVE); SARS-CoV-2 Xpert Express NEGATIVE (NEGATIVE)
[2024-10-09] MEDS ORDERED: Tessalon Perles 100 MG PO ONE (21:47)
[2024-10-09] MEDS ORDERED: Zithromax 250 MG TABLET ONE (21:47)
[2024-10-09] MEDS ORDERED: DELTASONE 20 MG ONE (21:47)
[2024-10-09] MEDS: Zithromax 250 MG TABLET PO ONE (21:51)
[2024-10-09] MEDS: DELTASONE 20 MG PO ONE (21:51)
[2024-10-09] MEDS: Tessalon Perles 100 MG PO PRN (21:52)
[2024-10-09 22:05] VITALS: BP 187/89
--- NOTE | 2024-10-10 08:48 | XRAY ---
Indication: Cough. Comparison: None Portable chest demonstrates normal heart and lungs. Bony thorax intact with minimal degenerative changes.
== END 2024-10-09 22:12 | disposition home or self-care (01) ==
LOC: ED 18:36
DX: J18.9 Pneumonia, unspecified organism (principal); R05.9 Cough, unspecified; H92.03 Otalgia, bilateral; R07.9 Chest pain, unspecified; R06.02 Shortness of breath
CPT/HCPCS: 0241U; 36415; 71045; 80053; 85025; 99284; 99283; A9270-GY